=== PATIENT | female | born 1965 | race Caucasian/White ===

== ENCOUNTER → 2017-03-13 | Day surgery (SDC) | payer OTHER ==
[~2017-03-13] MED LIST: BUPIVACAINE/EPINEPHRINE 0.5% 50 ML VIAL ONE; KETOROLAC TROMETHAMINE 30 MG/ML (IVP) VIAL IV PUSH ONE; LACTATED RINGER'S 1000 ML INJ 1,000 ML ONE; MIDAZOLAM HCL 2 MG/2 ML VIAL ONE; ONDANSETRON HCL 4 MG/2 ML VIAL IV PUSH ONE; PROPOFOL 200 MG/20 ML AMP IV ONE; ceFAZolin INJ 1,000 MG VIAL ONE
--- NOTE | 2017-03-13 13:03 | TN ---
cc: GYPSY SANCHEZ DATE OF SURGERY 03/13/2017 PREOPERATIVE DIAGNOSIS 1. Internal derangement right knee. 2. Probable lateral meniscus tear right knee. POSTOPERATIVE DIAGNOSIS 1. Tear of the lateral meniscus right knee. 2. Chondromalacia of the lateral compartment 3. Chondromalacia patella. PROCEDURE 1. Arthroscopy of the right knee. 2. Arthroscopic partial lateral meniscectomy. 3. Abrasion chondroplasty lateral tibial plateau SURGEON Gypsy Sanchez MD ANESTHESIA General ESTIMATED BLOOD LOSS Minimal INDICATION This is a 53-year-old female who had a slip and fall injury to her right knee. Investigative studies shows evidence of a torn meniscus. The patient is having meniscal type symptoms. She presents for surgical treatment. PROCEDURE The patient was brought to the operating room, anesthetized in the supine position. The right leg was scrubbed with alcohol, followed by Hibiclens, followed by Chloraprep and draped sterilely. Antibiotics were given within a routine time window and a time-out was done. Inflow was established anterior and medially. The knee was inflated. The cameras was introduced along the medial joint line. The suprapatellar pouch showed minimal synovitis. The retropatellar surface showed one area of grade 2 change. The gutters were visualized, were free of any loose bodies. The lateral compartment showed evidence of a horizontal tear of the lateral meniscus at approximately the 10-11 o'clock position and also some detachment at the posterior horn with a tear adjacent to the posterior horn. There were grade 2 changes of the lateral tibial plateau with softening of the articular cartilage. The anterior portion of meniscus was normal. The ACL had a normal foot print appearance to it in the notch. The medial compartment showed almost no changes at all. A separate spinal needle was used to make a separate incision on the lateral side. Straight and angled punches were used to take meniscus back from approximately the 10 o'clock position to the posterior horn. The rest of the meniscus was quite stable. We did not need to extend it into the popliteal hiatus. The meniscal debrider was used to remove the fragments, smooth the edges and also perform a minor abrasion chondroplasty. The wound was irrigated copiously. Hemostasis was controlled. The portals were injected with half percent Marcaine with epinephrine. It was then closed with Steri-Strips and Benzoin, followed by a sterile dressing. The patient was awakened and taken to the recovery room in satisfactory condition. Gypsy MD RAYMUNDO Flores/LASHELL /12:44 PM /12:50 PM
== END | disposition home or self-care (01) ==
LOC: ESDC 11:09
PROVIDERS: ATTEND Orthopaedic Surgery Orthopaedic Surgery of the Spine
DX: S83.281A Other tear of lateral meniscus, current injury, right knee, initial encounter (principal); M22.41 Chondromalacia patellae, right knee
CPT/HCPCS: 01400; 29881; J0690; J1885; J2250; J2405; J3010; J7120